=== PATIENT | female | born 1955 | race Caucasian/White ===

== ENCOUNTER → 2017-01-11 | Outpatient (CLI) | payer BC ==
--- NOTE | 2017-01-11 11:01 | PCM.PRNOTE ---
- Free Text/Narrative Note: Procedure: Cardiolite exercise stress test Resting blood pressure 150/90, pulse 83 Patient exercised per Luis protocol 5 minutes 51 seconds and achieved a maximum heart rate of 140 beats per minute which was 88% of age-predicted maximum heart rate. Mets: 7.0 double product 51521 Resting EKG revealed normal sinus rhythm With exertion, no acute ST-T changes were noted Test stopped at target heart rate. No complaints of chest pain during exercise or recovery. Impression: #1. Negative stress test for acute ST-T changes #2. Hypertensive response to exercise #3 Poor exercise tolerance #4. Cardiolite portion of test pending
--- NOTE | 2017-01-11 13:14 | NM ---
EXAMINATION: Nuclear medicine myocardial perfusion study with exercise stress test. HISTORY: Chest pain. PROCEDURE: Patient exercised according to Luis protocol for 5 minutes and 51 seconds and achieved maximal hear t rate of 140 beats per minute. Adequate exercise. Following intravenous administration of 9.9 and 30.7 mCi of technetium 99m sestamibi, stress and r est SPECT images including gating imaging was performed. FINDINGS: Stress and rest myocardial SPECT images demonstrates mildly decreased perfusion at the apex which ap pears slightly more pronounced during stress. Review of gated images demonstrates normal wall motion, contractility and wall thickening. The left ventricular ejection fraction is 73 %. The left ventricular chamber size is normal. IMPRESSION: 1. Possible minimal ischemia at the apex. 2. Normal ventricular chamber size and function with ejection fraction of 73 %.
== END ==
LOC: MW.NM 06:24
PROVIDERS: ATTEND Internal Medicine
DX: R07.9 Chest pain, unspecified (principal)
CPT/HCPCS: 78452; 93017; A9500

== ENCOUNTER → 2017-02-05 | Outpatient (CLI) | payer BC | LOC: MW.CHIM 11:32 | PROVIDERS: ATTEND Internal Medicine | DX: R07.9 Chest pain, unspecified (principal) | CPT/HCPCS: 93005 ==

== ENCOUNTER → 2017-02-11 | Outpatient (CLI) | payer BC ==
--- NOTE | 2017-02-13 17:50 | ECHO ---
EXAM DATE: 02/11/17 The echocardiogram report can be seen in this patient's EMR (Electronic Medical Record) in the Reports section. CORBY
== END ==
LOC: MW.US 12:33
PROVIDERS: ATTEND Internal Medicine
DX: I25.10 Atherosclerotic heart disease of native coronary artery without angina pectoris (principal)
CPT/HCPCS: 93306

== ENCOUNTER 2019-01-08 08:36 | Emergency (ER) | payer BC ==
[2019-01-08] MEDS ORDERED: Sodium Chloride 0.9% 1,000 ML IV ONE (08:41)
[2019-01-08] MEDS ORDERED: Ondansetron 4 MG/2 ML SDV IVPUSH ONE (08:41)
[2019-01-08] MEDS ORDERED: Aspirin 81 MG Tab.Chew PO ONE (08:41)
--- NOTE | 2019-01-08 08:43 | EDM.PDOC ---
ED HPI GENERAL MEDICAL PROBLEM - General Stated Complaint: DIZZINESS, CHEST PAIN Time Seen by Provider: 01/08/19 08:42 Source of Information: Reports: Patient - History of Present Illness INITIAL COMMENTS - FREE TEXT/NARRATIVE: HISTORY AND PHYSICAL: History of present illness: [Patient presents for a visit due to dizziness and chest pain She's had the chest pain intermittently for [address] Rosas, he is been to [place] for repeat stress testing she does have a history of OH in 2015 and stenting should has not used nitroglycerin, as pain is 5 out of 10 stabbing and short lived in nature worsened by movements, can reproduce the pain with palpation over the lower rib margins near the sternum Dizziness is clearly associated with head position more significant with looking up at the ceiling and head tilt to the right, this has also been occurring for months No fever nausea vomiting chills sweats no chest pain shortness breath headache dizziness or palpitation no bowel or urine symptoms at current Although during exam as per above I can reproduce the dizziness as long as she is looking straight ahead or sitting up without movement there is no dizziness] Review of systems: As per history of present illness and below otherwise all systems reviewed and negative. Past medical history: As per history of present illness and as reviewed below otherwise noncontributory. Surgical history: As per history of present illness and as reviewed below otherwise noncontributory. Social history: No reported history of drug or alcohol abuse. Family history: As per history of present illness and as reviewed below otherwise noncontributory. Physical exam: HEENT: Atraumatic, normocephalic, pupils reactive, negative for conjunctival pallor or scleral icterus, mucous membranes moist, throat clear, neck supple, nontender, trachea midline. Positional dizziness as outlined in the history of present illness Lungs: Clear to auscultation, breath sounds equal bilaterally, chest nontender. Heart: S1S2, regular, negative for clicks, rubs, or JVD. Abdomen: Soft, nondistended, nontender. Negative for masses or hepatosplenomegaly. Negative for costovertebral tenderness. Pelvis: Stable nontender. Genitourinary: Deferred. Rectal: Deferred. Extremities: Atraumatic, negative for cords or calf pain. Neurovascular unremarkable. Neuro: Awake, alert, oriented. Cranial nerves II through XII unremarkable. Cerebellum unremarkable. Motor and sensory unremarkable throughout. Exam nonfocal. Diagnostics: [CBC CMP UA troponin lipase EKG Chest 1 view] pt refused head CT as she is claustrophobic and generally has required conscious sedation to have had imaging performed Therapeutics: [Normal saline Aspirin 324 mg chewable Zofran Photon X Scopolamine patch Follow-up with primary care and cardiology as scheduled ] Impression: [Chest wall pain B9 positional vertigo Chronic history of baseline Definitive disposition and diagnosis as appropriate pending reevaluation and review of above. - Related Data Allergies Allergy/AdvReac Type Severity Reaction Status Date / Time erythromycin base Allergy Vomiting Verified 01/08/19 09:04 [Erythromycin Base] Sulfa (Sulfonamide Allergy Vomiting Verified 01/08/19 09:04 Antibiotics) Tetracyclines Allergy Vomiting Verified 01/08/19 09:04 Home Meds: Home Meds Aspirin [Ecotrin] 81 mg PO DAILY 12/16/14 [History] Clopidogrel [Plavix] 75 mg PO DAILY 12/16/14 [History] Losartan [Cozaar] 25 mg PO DAILY 12/16/14 [History] Metoprolol Succinate [Toprol XL] 25 mg PO DAILY 12/16/14 [History] Nitroglycerin [Nitrostat] 0.4 mg SL ASDIRECTED PRN 12/16/14 [History] Ranitidine [Zantac] 150 mg PO DAILY PRN 12/16/14 [History] atorvaSTATin [Lipitor] 40 mg PO DAILY 12/16/14 [History] Past Medical History HEENT History: Reports: None Cardiovascular History: Reports: High Cholesterol, Hypertension, [place], Stents Respiratory History: Reports: None Gastrointestinal History: Reports: GERD Genitourinary History: Reports: None 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 Musculoskeletal History: Reports: None Neurological History: Reports: None Psychiatric History: Reports: None Endocrine/Metabolic History: Reports: None Hematologic History: Reports: None Immunologic History: Reports: None Oncologic (Cancer) History: Reports: None Dermatologic History: Reports: None - Infectious Disease History Infectious Disease History: Reports: Chicken Pox - Past Surgical History Cardiovascular Surgical History: Reports: Coronary Artery Stent ED ROS GENERAL - Review of Systems Review Of Systems: See Below ED EXAM, GENERAL - Physical Exam Exam: See Below Course - Vital Signs Last Recorded V/S: Last Vital Signs Temp 97.1 F 01/08/19 08:41 Pulse 77 01/08/19 08:41 Resp 16 01/08/19 08:41 BP 182/82 H 01/08/19 08:41 Pulse Ox 97 01/08/19 08:41 - Orders/Labs/Meds Orders: Active Orders 24 hr Category Date Time Status EKG Documentation Completion [RC] STAT Care 01/08/19 08:42 Active Labs: Laboratory Tests 01/08/19 01/08/19 01/08/19 Range/Units 08:50 08:50 08:50 WBC 9.37 (4.0-11.0) K/uL RBC 4.51 (4.30-5.90) M/uL Hgb 14.1 (12.0-16.0) g/dL Hct 42.0 (36.0-46.0) % MCV 93.1 (80.0-98.0) fL MCH 31.3 (27.0-32.0) pg MCHC 33.6 (31.0-37.0) g/dL RDW Std Deviation 44.1 (28.0-62.0) fl RDW Coeff of Ashly 13 (11.0-15.0) % Plt Count 250 (150-400) K/uL MPV 9.70 (7.40-12.00) fL Neut % (Auto) 64.2 (48.0-80.0) % Lymph % (Auto) 24.3 (16.0-40.0) % [place] % (Auto) 8.2 (0.0-15.0) % Eos % (Auto) 2.9 (0.0-7.0) % Baso % (Auto) 0.4 (0.0-1.5) % Neut # (Auto) 6.0 H (1.4-5.7) K/uL Lymph # (Auto) 2.3 (0.6-2.4) K/uL [place] # (Auto) 0.8 (0.0-0.8) K/uL Eos # (Auto) 0.3 (0.0-0.7) K/uL Baso # (Auto) 0.0 (0.0-0.1) K/uL Nucleated RBC % 0.0 /100WBC Nucleated RBCs # 0 K/uL INR 0.97 Sodium 142 (136-145) mmol/L Potassium 4.1 (3.5-5.1) mmol/L Chloride 104 (98-107) mmol/L Carbon Dioxide 29.3 (21.0-32.0) mmol/L BUN 12 (7.0-18.0) mg/dL Creatinine 0.7 (0.6-1.0) mg/dL Est Cr Clr Drug Dosing 65.06 mL/min Estimated GFR (MDRD) > 60.0 ml/min Glucose 130 H (74-106) mg/dL Calcium 9.8 (8.5-10.1) mg/dL Total Bilirubin 0.7 (0.2-1.0) mg/dL AST 27 (15-37) IU/L ALT 54 (14-63) IU/L Alkaline Phosphatase 94 (46-116) U/L Troponin I < 0.050 (0.000-0.056) ng/mL Total Protein 7.6 (6.4-8.2) g/dL Albumin 4.1 (3.4-5.0) g/dL Globulin 3.5 (2.6-4.0) g/dL Albumin/Globulin Ratio 1.2 (0.9-1.6) Lipase 93 (73-393) U/L Urine Color Urine Appearance Urine pH (5.0-8.0) Ur Specific [place] (1.001-1.035) Urine Protein (NEGATIVE) mg/dL Urine Glucose (UA) (NEGATIVE) mg/dL Urine Ketones (NEGATIVE) mg/dL Urine Occult Blood (NEGATIVE) Urine Nitrite (NEGATIVE) Urine Bilirubin (NEGATIVE) Urine Urobilinogen (<2.0) EU/dL Ur Leukocyte Esterase (NEGATIVE) 01/08/19 Range/Units 10:00 WBC (4.0-11.0) K/uL RBC (4.30-5.90) M/uL Hgb (12.0-16.0) g/dL Hct (36.0-46.0) % MCV (80.0-98.0) fL MCH (27.0-32.0) pg MCHC (31.0-37.0) g/dL RDW Std Deviation (28.0-62.0) fl RDW Coeff of Ashly (11.0-15.0) % Plt Count (150-400) K/uL MPV (7.40-12.00) fL Neut % (Auto) (48.0-80.0) % Lymph % (Auto) (16.0-40.0) % [place] % (Auto) (0.0-15.0) % Eos % (Auto) (0.0-7.0) % Baso % (Auto) (0.0-1.5) % Neut # (Auto) (1.4-5.7) K/uL Lymph # (Auto) (0.6-2.4) K/uL [place] # (Auto) (0.0-0.8) K/uL Eos # (Auto) (0.0-0.7) K/uL Baso # (Auto) (0.0-0.1) K/uL Nucleated RBC % /100WBC Nucleated RBCs # K/uL INR Sodium (136-145) mmol/L Potassium (3.5-5.1) mmol/L Chloride (98-107) mmol/L Carbon Dioxide (21.0-32.0) mmol/L BUN (7.0-18.0) mg/dL Creatinine (0.6-1.0) mg/dL Est Cr Clr Drug Dosing mL/min Estimated GFR (MDRD) ml/min Glucose (74-106) mg/dL Calcium (8.5-10.1) mg/dL Total Bilirubin (0.2-1.0) mg/dL AST (15-37) IU/L ALT (14-63) IU/L Alkaline Phosphatase (46-116) U/L Troponin I (0.000-0.056) ng/mL Total Protein (6.4-8.2) g/dL Albumin (3.4-5.0) g/dL Globulin (2.6-4.0) g/dL Albumin/Globulin Ratio (0.9-1.6) Lipase (73-393) U/L Urine Color YELLOW Urine Appearance CLEAR Urine pH 6.0 (5.0-8.0) Ur Specific [place] 1.010 (1.001-1.035) Urine Protein NEGATIVE (NEGATIVE) mg/dL Urine Glucose (UA) NEGATIVE (NEGATIVE) mg/dL Urine Ketones NEGATIVE (NEGATIVE) mg/dL Urine Occult Blood NEGATIVE (NEGATIVE) Urine Nitrite NEGATIVE (NEGATIVE) Urine Bilirubin NEGATIVE (NEGATIVE) Urine Urobilinogen 0.2 (<2.0) EU/dL Ur Leukocyte Esterase NEGATIVE (NEGATIVE) Meds: Medications Discontinued Medications Generic Name Dose Route Start Last Admin Trade Name Benjie PRN Reason Stop Dose Admin Aspirin 324 mg 01/08/19 08:41 01/08/19 09:15 Aspirin PO 01/08/19 08:42 324 mg ONETIME ONE Administration Sodium Chloride 1,000 mls @ 999 mls/hr 01/08/19 08:41 01/08/19 09:10 Normal Saline IV 01/08/19 09:41 999 mls/hr STAT ONE Administration Sterile Water Confirm 01/08/19 10:19 01/08/19 10:37 Sterile Water For Injection Administered 01/08/19 10:20 1 mls/hr Dose Administration 20 mls @ as directed .ROUTE .STK-MED ONE Ondansetron HCl 8 mg 01/08/19 08:41 01/08/19 09:13 Zofran IVPUSH 01/08/19 08:42 8 mg ONETIME ONE Administration Pantoprazole Sodium 80 mg 01/08/19 09:27 01/08/19 10:33 Protonix Iv IVPUSH 01/08/19 09:28 80 mg .BOLUS ONE Administration Departure - Departure Time of Disposition: 10:48 Disposition: Home, Self-Care 01 Condition: Good Clinical Impression: Benign positional vertigo, Chest wall pain - Discharge Information Additional Instructions: The following information is given to patients seen in the emergency department who are being discharged to home. This information is to outline your options for follow-up care. We provide all patients seen in our emergency department with a follow-up referral. The need for follow-up, as well as the timing and circumstances, are variable depending upon the specifics of your emergency department visit. If you don't have a primary care physician on staff, we will provide you with a referral. We always advise you to contact your personal physician following an emergency department visit to inform them of the circumstance of the visit and for follow-up with them and/or the need for any referrals to a consulting specialist. The emergency department will also refer you to a specialist when appropriate. This referral assures that you have the opportunity for follow-up care with a specialist. All of these measure are taken in an effort to provide you with optimal care, which includes your follow-up. Under all circumstances we always encourage you to contact your private physician who remains a resource for coordinating your care. When calling for follow-up care, please make the office aware that this follow-up is from your recent emergency room visit. If for any reason you are refused follow-up, please contact the [facility] emergency department at and asked to speak to the emergency department charge nurse. - My Orders Last 24 Hours: My Active Orders 01/08/19 08:42 EKG Documentation Completion [RC] STAT - Assessment/Plan Last 24 Hours: My Active Orders 01/08/19 08:42 EKG Documentation Completion [RC] STAT
[2019-01-08] MEDS ORDERED: Pantoprazole 40 MG Vial IVPUSH ONE (09:27)
[2019-01-08 09:36] LABS: CHLORIDE,CL 104 mmol/L (98-107); SODIUM,NA 142 mmol/L (136-145)
--- NOTE | 2019-01-08 09:40 | CR ---
EXAMINATION: Portable chest radiograph. HISTORY: Shortness of breath. FINDINGS: The trachea is midline. The cardiomediastinal silhouette is within normal limits. No pulmonary infiltrates, effusions or pneumothorax. Osseous structures appear unremarkable. IMPRESSION: No acute cardiopulmonary process.
[2019-01-08] MEDS ORDERED: Water For Injection, Sterile 20 ML ONE (10:19)
[2019-01-08 11:23] VITALS: BP 163/66
== END 2019-01-08 11:12 | disposition home or self-care (01) ==
LOC: MW.ED 08:36
DX: R07.89 Other chest pain (principal); H81.10 Benign paroxysmal vertigo, unspecified ear; I10 Essential (primary) hypertension; I25.2 Old myocardial infarction; Z88.1 Allergy status to other antibiotic agents; Z79.82 Long term (current) use of aspirin
CPT/HCPCS: 36415; 71045; 80053; 81003; 83690; 84484; 85025; 85610; 96361; 96374; 96375; 99285; A9270; C9113; J2405; J7040; 99284

== ENCOUNTER 2023-07-03 11:50 | Emergency (ER) | payer BC ==
[2023-07-03] MEDS ORDERED: Ondansetron 4 MG/2 ML SDV IVPUSH ONE (12:29)
[2023-07-03] MEDS ORDERED: Sodium Chloride 0.9% 10 ML Syringe FLUSH PRN (12:29)
[2023-07-03] MEDS ORDERED: Sodium Chloride 0.9% 1,000 ML IV ONE (12:29)
[2023-07-03] MEDS ORDERED: Sodium Chloride 0.9% 2.5 ML Syringe FLUSH PRN (12:29)
[2023-07-03 12:48] LABS: BASOPHILS ABSOLUTE AUTO 0.1 K/uL (0.0-0.1); BASOPHILS PERCENT AUTO 0.7 % (0.0-1.5); EOSINOPHILS ABSOLUTE AUTO 0.2 K/uL (0.0-0.7); EOSINOPHILS PERCENT AUTO 2.8 % (0.0-7.0); HEMATOCRIT 43.1 % (36.0-46.0); HEMOGLOBIN 14.6 g/dL (12.0-16.0); LYMPHOCYTES ABSOLUTE AUTO 1.4 K/uL (0.6-2.4); LYMPHOCYTES PERCENT AUTO 19.8 % (16.0-40.0); MEAN CORPUSCULAR HEMOGLOBIN 33.2 pg (27.0-32.0); MEAN CORPUSCULAR HGB CONC 33.9 g/dL (31.0-37.0); MONOCYTES ABSOLUTE AUTO 0.6 K/uL (0.0-0.8); MONOCYTES PERCENT AUTO 8.6 % (0.0-15.0); NEUTROPHILS ABSOLUTE AUTO 4.9 K/uL (1.4-5.7); NEUTROPHILS PERCENT AUTO 68.1 % (48.0-80.0); NRBC ABSOLUTE 0 K/uL; PLATELET COUNT,PLT 254 K/uL (150-400); WHITE BLOOD CELL COUNT,WBC 7.24 K/uL (4.0-11.0)
[2023-07-03 13:00] LABS: INR 0.98 (0.86-1.11)
[2023-07-03 13:28] LABS: A/G RATIO 1.4 (0.9-1.6); ALANINE AMINOTRANSFERASE,ALT 32 IU/L (14-63); ALBUMIN 4.2 g/dL (3.4-5.0); ALKALINE PHOSPHATASE 56 U/L (46-116); ASPARTATE AMNIOTRANSFERASE,AST 22 IU/L (15-37); BILIRUBIN TOTAL 0.5 mg/dL (0.2-1.0); BLOOD UREA NITROGEN,BUN 12 mg/dL (7.0-18.0); CALCIUM 9.8 mg/dL (8.5-10.1); CHLORIDE,CL 103 mmol/L (98-107); CREATININE 0.7 mg/dL (0.6-1.0); EST CRCL DRUG DOSING (CG) 61.68 mL/min; GLUCOSE RANDOM 141 mg/dL (74-106); POTASSIUM,K 4.7 mmol/L (3.5-5.1); PROTEIN TOTAL,TP 7.3 g/dL (6.4-8.2); SODIUM,NA 140 mmol/L (136-145)
[2023-07-03 13:32] LABS: ESTIMATED GFR 95 mL/min (>60)
[2023-07-03] MEDS ORDERED: Meclizine 25 MG Tab PO ONE (14:03)
[2023-07-03 15:14] VITALS: BP 189/90; PULSE 69
== END 2023-07-03 15:24 | disposition home or self-care (01) ==
LOC: MW.ED 11:50
DX: R42 Dizziness and giddiness (principal); I10 Essential (primary) hypertension; E78.00 Pure hypercholesterolemia, unspecified; I25.2 Old myocardial infarction; K21.9 Gastro-esophageal reflux disease without esophagitis; Z72.0 Tobacco use; Z88.1 Allergy status to other antibiotic agents; Z88.2 Allergy status to sulfonamides; Z88.8 Allergy status to other drugs, medicaments and biological substances; Z79.82 Long term (current) use of aspirin; Z79.02 Long term (current) use of antithrombotics/antiplatelets; Z79.899 Other long term (current) drug therapy
CPT/HCPCS: 36415; 70450; 80053; 84484; 85025; 85610; 93005; 96361; 96374; 96375; 99284; A9270; J2405; J3360; J3490; J7030; 93010

== ENCOUNTER 2024-10-31 15:24 | Emergency (ER) | payer MEDICARE ==
[2024-10-31 17:49] LABS: BASOPHILS ABSOLUTE AUTO 0.09 K/uL (0.00-0.20); BASOPHILS PERCENT AUTO 0.6 % (0.0-1.0); EOSINOPHILS ABSOLUTE AUTO 1.09 K/uL (0.00-0.45); EOSINOPHILS PERCENT AUTO 7.1 % (0.0-6.0); HEMATOCRIT 30.1 % (37.0-47.0); HEMOGLOBIN 9.6 g/dL (12.0-16.0); IMMATURE GRAN ABSOLUTE AUTO 0.13 K/uL (0.00-0.05); IMMATURE GRAN PERCENT AUTO 0.9 % (0.0-0.4); LYMPHOCYTES ABSOLUTE AUTO 1.62 K/uL (1.00-4.80); LYMPHOCYTES PERCENT AUTO 10.6 % (24.0-44.0); MEAN CORPUSCULAR HEMOGLOBIN 28.7 pg (28.0-32.0); MEAN CORPUSCULAR HGB CONC 31.9 g/dL (32.0-36.0); MEAN CORPUSCULAR VOLUME 89.9 fL (83.0-99.0); MEAN PLATELET VOLUME 8.8 fL (9.4-12.3); MONOCYTES ABSOLUTE AUTO 1.15 K/uL (0.00-0.80); MONOCYTES PERCENT AUTO 7.5 % (0.0-8.0); NEUTROPHILS ABSOLUTE AUTO 11.21 K/uL (1.80-7.70); NEUTROPHILS PERCENT AUTO 73.3 % (41.0-71.0); PLATELET COUNT,PLT 722 K/uL (150-400); RED BLOOD CELL COUNT 3.35 M/uL (4.10-5.30); WHITE BLOOD CELL COUNT,WBC 15.29 K/uL (3.9-11.3)
[2024-10-31] MEDS: Albuterol/Ipratropium 3.0-0.5 MG/3 ML Neb Soln NEB ONE (17:53)
[2024-10-31 18:19] LABS: A/G RATIO 0.5 (0.9-1.6); ALBUMIN 2.8 g/dL (3.4-5.0); BILIRUBIN TOTAL 0.3 mg/dL (0.2-1.0); CALCIUM 9.6 mg/dL (8.5-10.1); CREATININE 0.7 mg/dL (0.6-1.0); EST CRCL DRUG DOSING (CG) 59.99 mL/min; POTASSIUM,K 4.1 mmol/L (3.5-5.1)
[2024-10-31] MEDS: cefTRIAXone 1 GM in Sodium Chloride 0.9% 50 ML IV ONE (19:49)
[2024-10-31] MEDS: Iopamidol 755 MG/ML 500 ML Multipack Bottle IVPUSH ONE (19:56)
[2024-10-31 21:24] VITALS: BP 141/73; PULSE 94
== END 2024-10-31 21:24 | disposition home or self-care (01) ==
LOC: MW.ED 15:24
DX: J90 Pleural effusion, not elsewhere classified (principal); R91.8 Other nonspecific abnormal finding of lung field; I10 Essential (primary) hypertension; I25.2 Old myocardial infarction; K21.9 Gastro-esophageal reflux disease without esophagitis; E78.00 Pure hypercholesterolemia, unspecified; Z75.8 Other problems related to medical facilities and other health care; Z88.1 Allergy status to other antibiotic agents; Z88.2 Allergy status to sulfonamides; Z88.8 Allergy status to other drugs, medicaments and biological substances; Z79.82 Long term (current) use of aspirin; Z79.899 Other long term (current) drug therapy
CPT/HCPCS: 36415; 71275; 80053; 83605; 83880; 84484; 85025; 87040; 93005; 96365; 99285; J0696; J3490; Q9967; 93010; 99284; J7620-GY

== ENCOUNTER 2024-11-02 12:49 | Emergency (ER) | payer MEDICARE ==
[2024-11-02 15:47] VITALS: BP 111/76; PULSE 78
== END 2024-11-02 15:45 | disposition home or self-care (01) ==
LOC: MW.ED 12:49
DX: J90 Pleural effusion, not elsewhere classified (principal); I10 Essential (primary) hypertension; I25.2 Old myocardial infarction; K21.9 Gastro-esophageal reflux disease without esophagitis; E78.00 Pure hypercholesterolemia, unspecified; Z88.2 Allergy status to sulfonamides; Z88.8 Allergy status to other drugs, medicaments and biological substances; Z79.82 Long term (current) use of aspirin; Z79.899 Other long term (current) drug therapy
CPT/HCPCS: 99283; 99284

== ENCOUNTER 2024-12-27 14:33 | Emergency (ER) | payer MEDICARE ==
[2024-12-27] MEDS ORDERED: Sodium Chloride 0.9% 2.5 ML Syringe FLUSH PRN (14:37)
[2024-12-27] MEDS ORDERED: Sodium Chloride 0.9% 10 ML Syringe FLUSH PRN (14:37)
[2024-12-27 14:54] LABS: HEMATOCRIT 30.6 % (37.0-47.0); HEMOGLOBIN 9.6 g/dL (12.0-16.0); MEAN CORPUSCULAR HEMOGLOBIN 26.8 pg (28.0-32.0); MEAN CORPUSCULAR HGB CONC 31.4 g/dL (32.0-36.0); MEAN CORPUSCULAR VOLUME 85.5 fL (83.0-99.0); MEAN PLATELET VOLUME 9.1 fL (9.4-12.3); PLATELET COUNT,PLT 469 K/uL (150-400); RED BLOOD CELL COUNT 3.58 M/uL (4.10-5.30); WHITE BLOOD CELL COUNT,WBC 19.27 K/uL (3.9-11.3)
[2024-12-27 15:09] LABS: INR 1.26 (0.86-1.11)
[2024-12-27 15:12] LABS: EOSINOPHILS ABSOLUTE MAN 1.93 K/uL (0.00-0.45); EOSINOPHILS PERCENT MAN 10 % (0-6); LYMPHOCYTES ABSOLUTE MAN 1.54 K/uL (1.00-4.80); LYMPHOCYTES PERCENT MAN 8 % (24-44); SEG NEUTROPHILS PERCENT MAN 82 % (41-71)
[2024-12-27] MEDS: Sodium Chloride 0.9% 500 ML IV SCH (15:12)
[2024-12-27 15:30] LABS: A/G RATIO 0.7 (0.9-1.6); ALBUMIN 2.5 g/dL (3.4-5.0); BILIRUBIN TOTAL 0.6 mg/dL (0.2-1.0); CALCIUM 8.5 mg/dL (8.5-10.1); CARBON DIOXIDE,CO2 25.8 mmol/L (21.0-32.0); CREATININE 0.7 mg/dL (0.6-1.0); EST CRCL DRUG DOSING (CG) 62.74 mL/min; MAGNESIUM 1.3 mg/dL (1.8-2.4); POTASSIUM,K 4.5 mmol/L (3.5-5.1)
[2024-12-27 15:48] LABS: LACTIC ACID 2.6 mmol/L (0.4-2.0)
[2024-12-27] MEDS: Iopamidol 755 MG/ML 500 ML Multipack Bottle IVPUSH STA (16:19)
[2024-12-27] MEDS: Lidocaine 1% 50 ML MDV INJECT ONE (17:47)
[2024-12-27] MEDS: fentaNYL 50 MCG/ML SDV IVPUSH ONE (18:10)
[2024-12-27 19:40] VITALS: BP 110/59; PULSE 85
== END 2024-12-27 19:40 | disposition home or self-care (01) ==
LOC: MW.ED 14:33
DX: C78.00 Secondary malignant neoplasm of unspecified lung (principal); J91.0 Malignant pleural effusion; I25.10 Atherosclerotic heart disease of native coronary artery without angina pectoris; I25.2 Old myocardial infarction; I10 Essential (primary) hypertension; E78.00 Pure hypercholesterolemia, unspecified; K21.9 Gastro-esophageal reflux disease without esophagitis; Z88.1 Allergy status to other antibiotic agents; Z88.2 Allergy status to sulfonamides; Z88.8 Allergy status to other drugs, medicaments and biological substances; Z79.82 Long term (current) use of aspirin; Z79.51 Long term (current) use of inhaled steroids; Z79.899 Other long term (current) drug therapy
CPT/HCPCS: 32555; 36415; 71045; 71275; 74177; 80053; 83605; 83735; 83880; 84484; 85025; 85610; 93005; 96361; 96374; 99285; J2003; J3010; J7040; Q9967

== ENCOUNTER 2025-02-13 18:57 | Emergency (ER) | payer MEDICARE ==
[2025-02-13 19:43] LABS: BASOPHILS ABSOLUTE AUTO 0.02 K/uL (0.00-0.20); BASOPHILS PERCENT AUTO 0.3 % (0.0-1.0); EOSINOPHILS ABSOLUTE AUTO 0.12 K/uL (0.00-0.45); EOSINOPHILS PERCENT AUTO 1.9 % (0.0-6.0); HEMATOCRIT 24.7 % (37.0-47.0); IMMATURE GRAN ABSOLUTE AUTO 0.05 K/uL (0.00-0.05); IMMATURE GRAN PERCENT AUTO 0.8 % (0.0-0.4); LYMPHOCYTES ABSOLUTE AUTO 1.33 K/uL (1.00-4.80); LYMPHOCYTES PERCENT AUTO 21.1 % (24.0-44.0); MEAN CORPUSCULAR HEMOGLOBIN 29.1 pg (28.0-32.0); MEAN CORPUSCULAR HGB CONC 32.4 g/dL (32.0-36.0); MEAN CORPUSCULAR VOLUME 89.8 fL (83.0-99.0); MEAN PLATELET VOLUME 8.5 fL (9.4-12.3); MONOCYTES ABSOLUTE AUTO 0.91 K/uL (0.00-0.80); MONOCYTES PERCENT AUTO 14.5 % (0.0-8.0); NEUTROPHILS ABSOLUTE AUTO 3.86 K/uL (1.80-7.70); NEUTROPHILS PERCENT AUTO 61.4 % (41.0-71.0); PLATELET COUNT,PLT 297 K/uL (150-400); RED BLOOD CELL COUNT 2.75 M/uL (4.10-5.30); WHITE BLOOD CELL COUNT,WBC 6.29 K/uL (3.9-11.3)
[2025-02-13 19:48] LABS: APPEARANCE,URINE CLEAR; BILIRUBIN,URINE NEGATIVE (NEGATIVE); COLOR,URINE YELLOW; GLUCOSE,URINE NEGATIVE (NEGATIVE); KETONES,URINE NEGATIVE (NEGATIVE); LEUKOCYTE ESTERASE,URINE NEGATIVE (NEGATIVE); NITRITE,URINE NEGATIVE (NEGATIVE); OCCULT BLOOD,URINE SMALL (NEGATIVE); PROTEIN,URINE NEGATIVE (NEGATIVE); UROBILINOGEN,URINE 0.2 EU/dL (<2.0)
[2025-02-13] MEDS: Ondansetron 4 MG/2 ML SDV IVPUSH ONE (19:48)
[2025-02-13] MEDS: HYDROmorphone 0.5 MG/0.5 ML Syringe IVPUSH ONE (19:48)
[2025-02-13] MEDS: Iopamidol 755 MG/ML 500 ML Multipack Bottle IVPUSH ONE (20:05)
[2025-02-13 20:12] LABS: A/G RATIO 0.9 (0.9-1.6); ALBUMIN 2.9 g/dL (3.4-5.0); BILIRUBIN TOTAL 0.2 mg/dL (0.2-1.0); CALCIUM 7.8 mg/dL (8.5-10.1); CARBON DIOXIDE,CO2 29.2 mmol/L (21.0-32.0); CREATININE 0.6 mg/dL (0.6-1.0); EST CRCL DRUG DOSING (CG) 69.99 mL/min; POTASSIUM,K 3.7 mmol/L (3.5-5.1)
[2025-02-13 20:47] LABS: BACTERIA,URINE RARE (NEGATIVE); EPITHELIAL CELLS,URINE RARE (NONE-FEW); WBC,URINE 0-1 (0-5/HPF)
[2025-02-13] MEDS: Methocarbamol 750 MG Tab PO STA (22:01)
[2025-02-13] MEDS: Ketorolac 30 MG/ML SDV IVPUSH ONE (22:14)
[2025-02-13 23:00] VITALS: BP 117/71; PULSE 100
== END 2025-02-13 23:01 | disposition home or self-care (01) ==
LOC: MW.ED 18:57
DX: R10.9 Unspecified abdominal pain (principal); C78.00 Secondary malignant neoplasm of unspecified lung; C80.1 Malignant (primary) neoplasm, unspecified; I10 Essential (primary) hypertension; I25.10 Atherosclerotic heart disease of native coronary artery without angina pectoris; E78.00 Pure hypercholesterolemia, unspecified; I25.2 Old myocardial infarction; K21.9 Gastro-esophageal reflux disease without esophagitis; Z95.5 Presence of coronary angioplasty implant and graft; Z79.82 Long term (current) use of aspirin; Z79.899 Other long term (current) drug therapy; Z88.2 Allergy status to sulfonamides; Z88.1 Allergy status to other antibiotic agents
CPT/HCPCS: 36415; 71275; 74177; 80053; 81001; 83690; 84484; 85025; 93005; 96374; 96375; 99285; A9270; J1885; J2405; Q9967; 93010; 99284

== ENCOUNTER 2025-02-22 17:29 | Inpatient (IN) | payer MEDICARE ==
[2025-02-22] MEDS ORDERED: Sodium Chloride 0.9% 10 ML Syringe FLUSH PRN (17:56)
[2025-02-22] MEDS ORDERED: Sodium Chloride 0.9% 2.5 ML Syringe FLUSH PRN (17:56)
[2025-02-22 18:05] LABS: BASOPHILS ABSOLUTE AUTO 0.04 K/uL (0.00-0.20); BASOPHILS PERCENT AUTO 0.3 % (0.0-1.0); EOSINOPHILS ABSOLUTE AUTO 0.18 K/uL (0.00-0.45); EOSINOPHILS PERCENT AUTO 1.5 % (0.0-6.0); HEMATOCRIT 29.9 % (37.0-47.0); HEMOGLOBIN 9.5 g/dL (12.0-16.0); IMMATURE GRAN ABSOLUTE AUTO 0.11 K/uL (0.00-0.05); IMMATURE GRAN PERCENT AUTO 0.9 % (0.0-0.4); LYMPHOCYTES ABSOLUTE AUTO 0.93 K/uL (1.00-4.80); LYMPHOCYTES PERCENT AUTO 7.7 % (24.0-44.0); MEAN CORPUSCULAR HEMOGLOBIN 28.6 pg (28.0-32.0); MEAN CORPUSCULAR HGB CONC 31.8 g/dL (32.0-36.0); MEAN CORPUSCULAR VOLUME 90.1 fL (83.0-99.0); MEAN PLATELET VOLUME 8.6 fL (9.4-12.3); MONOCYTES ABSOLUTE AUTO 1.09 K/uL (0.00-0.80); NEUTROPHILS ABSOLUTE AUTO 9.74 K/uL (1.80-7.70); NEUTROPHILS PERCENT AUTO 80.6 % (41.0-71.0); PLATELET COUNT,PLT 559 K/uL (150-400); RED BLOOD CELL COUNT 3.32 M/uL (4.10-5.30); WHITE BLOOD CELL COUNT,WBC 12.09 K/uL (3.9-11.3)
[2025-02-22 18:30] LABS: A/G RATIO 0.5 (0.9-1.6); ALANINE AMINOTRANSFERASE,ALT 14 IU/L (14-63); ALBUMIN 2.3 g/dL (3.4-5.0); ALKALINE PHOSPHATASE 84 U/L (46-116); ASPARTATE AMNIOTRANSFERASE,AST 15 IU/L (15-37); BILIRUBIN TOTAL 0.5 mg/dL (0.2-1.0); BLOOD UREA NITROGEN,BUN 6 mg/dL (7.0-18.0); CALCIUM 9.2 mg/dL (8.5-10.1); CARBON DIOXIDE,CO2 28.1 mmol/L (21.0-32.0); CHLORIDE,CL 91 mmol/L (98-107); CREATININE 0.6 mg/dL (0.6-1.0); GLUCOSE RANDOM 132 mg/dL (74-106); LIPASE 12 U/L (16-77); POTASSIUM,K 3.7 mmol/L (3.5-5.1); SODIUM,NA 129 mmol/L (136-145)
[2025-02-22 18:34] LABS: ESTIMATED GFR 97 mL/min (>60)
[2025-02-22] MEDS: Morphine 4 MG/ML Syringe IVPUSH ONE (20:34)
[2025-02-22 22:05] LABS: BODY FLUID TYPE PL
[2025-02-22 22:29] LABS: PROTEIN,BODY FLUID 3.6 g/dL
[2025-02-22 22:31] LABS: GLUCOSE,BODY FLUID < 1 mg/dL
[2025-02-22] MEDS: Sodium Chloride 0.9% 500 ML IV SCH (22:31)
[2025-02-22] MEDS: Cefepime 1 GM in Sodium Chloride 0.9% 50 ML IV ONE (22:31)
[2025-02-22] MEDS: Ondansetron 4 MG/2 ML SDV IVPUSH ONE (22:32)
[2025-02-22] MEDS: Morphine 2 MG/ML SYRINGE IVPUSH ONE (22:32)
[2025-02-22 22:58] LABS: COLOR,BODY FLUID RED
[2025-02-22 22:59] LABS: APPEARANCE,BODY FLUID CLOUDY; WBC BODY FLUID 25316 /uL
[2025-02-22 23:00] LABS: MONONUCLEAR, BODY FLUID 5.7 %; POLYMORPHONUCLEAR, BODY FLUID 94.3 %; RBC,BODY FLUID 48000 /uL
[2025-02-23] MEDS: Azithromycin 500 MG in Sodium Chloride 0.9% 250 ML IV SCH (00:42)
[2025-02-23] MEDS: Levofloxacin/Dextrose 5%-Water 750 MG in Premix Bag 1 BAG IV SCH (00:52)
[2025-02-23 05:51] LABS: BASOPHILS ABSOLUTE AUTO 0.04 K/uL (0.00-0.20); BASOPHILS PERCENT AUTO 0.4 % (0.0-1.0); EOSINOPHILS ABSOLUTE AUTO 0.34 K/uL (0.00-0.45); EOSINOPHILS PERCENT AUTO 3.5 % (0.0-6.0); HEMATOCRIT 26.1 % (37.0-47.0); HEMOGLOBIN 8.4 g/dL (12.0-16.0); IMMATURE GRAN ABSOLUTE AUTO 0.15 K/uL (0.00-0.05); IMMATURE GRAN PERCENT AUTO 1.5 % (0.0-0.4); LYMPHOCYTES ABSOLUTE AUTO 1.25 K/uL (1.00-4.80); LYMPHOCYTES PERCENT AUTO 12.7 % (24.0-44.0); MEAN CORPUSCULAR HGB CONC 32.2 g/dL (32.0-36.0); MEAN PLATELET VOLUME 8.4 fL (9.4-12.3); MONOCYTES ABSOLUTE AUTO 0.94 K/uL (0.00-0.80); MONOCYTES PERCENT AUTO 9.6 % (0.0-8.0); NEUTROPHILS ABSOLUTE AUTO 7.09 K/uL (1.80-7.70); NEUTROPHILS PERCENT AUTO 72.3 % (41.0-71.0); PLATELET COUNT,PLT 480 K/uL (150-400); WHITE BLOOD CELL COUNT,WBC 9.81 K/uL (3.9-11.3)
[2025-02-23 06:14] LABS: A/G RATIO 0.4 (0.9-1.6); ALBUMIN 1.8 g/dL (3.4-5.0); BILIRUBIN TOTAL 0.4 mg/dL (0.2-1.0); CALCIUM 8.3 mg/dL (8.5-10.1); CARBON DIOXIDE,CO2 28.4 mmol/L (21.0-32.0); CREATININE 0.5 mg/dL (0.6-1.0); EST CRCL DRUG DOSING (CG) 83.99 mL/min; POTASSIUM,K 3.3 mmol/L (3.5-5.1)
[2025-02-23] MEDS: Morphine 2 MG/ML SYRINGE IVPUSH PRN (08:41)
[2025-02-23] MEDS ORDERED: LORazepam 0.5 MG Tab PO PRN (09:00)
[2025-02-23] MEDS ORDERED: Methocarbamol 500 MG Tablet PO PRN (09:00)
[2025-02-23] MEDS ORDERED: cefTRIAXone 2 GM in Water For Injection, Sterile 20 ML IVPUSH SCH (09:00)
[2025-02-23] MEDS ORDERED: Magnesium Sulfate/Water 2 GM/50 ML Premix Bag IV ONE (10:28)
[2025-02-23] MEDS: Losartan 50 MG Tab PO SCH (10:28)
[2025-02-23] MEDS: Metoprolol Succinate 25 MG Tab.ER PO SCH (10:29)
[2025-02-23] MEDS: Cholecalciferol (Vitamin D3) 25 MCG Tab PO SCH (10:30)
[2025-02-23] MEDS: Apixaban 5 MG Tab PO SCH (10:30)
[2025-02-23] MEDS: Sertraline 100 MG Tab PO SCH (10:30)
[2025-02-23] MEDS: atorvaSTATin 40 MG Tab PO SCH (10:31)
[2025-02-23] MEDS: Fenofibrate,Micronized 67 MG Cap PO SCH (10:31)
[2025-02-23] MEDS: metroNIDAZOLE/Normal Saline 500 MG in Premix Bag 1 BAG IV SCH (10:42)
[2025-02-23] MEDS: Potassium Chloride 20 MEQ Tab.ER PO ONE (10:55)
[2025-02-23] MEDS: Magnesium Sulfate 2 GM/50 mL 2 GM in Premix Bag 1 BAG IV ONE (10:58)
[2025-02-23] MEDS: Tiotropium BR/Olodaterol HCL 4 GM Inhalation Spray 2.5mcg/1 dose; 10 doses INH SCH (11:10)
[2025-02-23] MEDS: oxyCODONE 5 MG Tab PO PRN (11:27)
[2025-02-23] MEDS: Ondansetron 4 MG/2 ML SDV IVPUSH PRN (17:56)
[2025-02-23 21:51] LABS: APPEARANCE,URINE CLEAR; BILIRUBIN,URINE NEGATIVE (NEGATIVE); COLOR,URINE YELLOW; GLUCOSE,URINE NEGATIVE (NEGATIVE); KETONES,URINE NEGATIVE (NEGATIVE); LEUKOCYTE ESTERASE,URINE NEGATIVE (NEGATIVE); NITRITE,URINE NEGATIVE (NEGATIVE); OCCULT BLOOD,URINE NEGATIVE (NEGATIVE); PH,URINE 5.5 (5.0-8.0); PROTEIN,URINE NEGATIVE (NEGATIVE); UROBILINOGEN,URINE 0.2 EU/dL (<2.0)
[2025-02-24 05:27] LABS: BASOPHILS ABSOLUTE AUTO 0.05 K/uL (0.00-0.20); BASOPHILS PERCENT AUTO 0.4 % (0.0-1.0); EOSINOPHILS PERCENT AUTO 3.1 % (0.0-6.0); HEMATOCRIT 25.5 % (37.0-47.0); HEMOGLOBIN 8.3 g/dL (12.0-16.0); IMMATURE GRAN ABSOLUTE AUTO 0.23 K/uL (0.00-0.05); IMMATURE GRAN PERCENT AUTO 1.8 % (0.0-0.4); LYMPHOCYTES ABSOLUTE AUTO 0.94 K/uL (1.00-4.80); LYMPHOCYTES PERCENT AUTO 7.2 % (24.0-44.0); MEAN CORPUSCULAR HEMOGLOBIN 29.2 pg (28.0-32.0); MEAN CORPUSCULAR HGB CONC 32.5 g/dL (32.0-36.0); MEAN CORPUSCULAR VOLUME 89.8 fL (83.0-99.0); MEAN PLATELET VOLUME 8.4 fL (9.4-12.3); MONOCYTES ABSOLUTE AUTO 1.35 K/uL (0.00-0.80); MONOCYTES PERCENT AUTO 10.4 % (0.0-8.0); NEUTROPHILS ABSOLUTE AUTO 10.07 K/uL (1.80-7.70); NEUTROPHILS PERCENT AUTO 77.1 % (41.0-71.0); PLATELET COUNT,PLT 511 K/uL (150-400); RED BLOOD CELL COUNT 2.84 M/uL (4.10-5.30); WHITE BLOOD CELL COUNT,WBC 13.04 K/uL (3.9-11.3)
[2025-02-24 05:53] LABS: CALCIUM 7.9 mg/dL (8.5-10.1); CARBON DIOXIDE,CO2 27.1 mmol/L (21.0-32.0); CREATININE 0.6 mg/dL (0.6-1.0); EST CRCL DRUG DOSING (CG) 69.99 mL/min; POTASSIUM,K 4.1 mmol/L (3.5-5.1)
[2025-02-24] MEDS: Polyethylene Glycol 3350 Powder 17 GM Packet PO SCH (15:27)
[2025-02-24] MEDS: oxyCODONE 5 MG Tab PO PRN (19:21)
[2025-02-25 06:03] LABS: BASOPHILS ABSOLUTE AUTO 0.04 K/uL (0.00-0.20); BASOPHILS PERCENT AUTO 0.3 % (0.0-1.0); EOSINOPHILS ABSOLUTE AUTO 0.57 K/uL (0.00-0.45); HEMATOCRIT 25.2 % (37.0-47.0); HEMOGLOBIN 8.1 g/dL (12.0-16.0); IMMATURE GRAN ABSOLUTE AUTO 0.26 K/uL (0.00-0.05); IMMATURE GRAN PERCENT AUTO 1.8 % (0.0-0.4); LYMPHOCYTES ABSOLUTE AUTO 0.79 K/uL (1.00-4.80); LYMPHOCYTES PERCENT AUTO 5.6 % (24.0-44.0); MEAN CORPUSCULAR HEMOGLOBIN 28.9 pg (28.0-32.0); MEAN CORPUSCULAR HGB CONC 32.1 g/dL (32.0-36.0); MEAN PLATELET VOLUME 8.5 fL (9.4-12.3); MONOCYTES ABSOLUTE AUTO 1.43 K/uL (0.00-0.80); MONOCYTES PERCENT AUTO 10.1 % (0.0-8.0); NEUTROPHILS ABSOLUTE AUTO 11.13 K/uL (1.80-7.70); NEUTROPHILS PERCENT AUTO 78.2 % (41.0-71.0); PLATELET COUNT,PLT 523 K/uL (150-400); WHITE BLOOD CELL COUNT,WBC 14.22 K/uL (3.9-11.3)
[2025-02-25 06:41] LABS: A/G RATIO 0.4 (0.9-1.6); ALBUMIN 1.6 g/dL (3.4-5.0); BILIRUBIN TOTAL 0.4 mg/dL (0.2-1.0); CALCIUM 7.8 mg/dL (8.5-10.1); CARBON DIOXIDE,CO2 28.8 mmol/L (21.0-32.0); CREATININE 0.6 mg/dL (0.6-1.0); EST CRCL DRUG DOSING (CG) 69.99 mL/min; MAGNESIUM 1.6 mg/dL (1.8-2.4); POTASSIUM,K 3.9 mmol/L (3.5-5.1); PROTEIN TOTAL,TP 5.4 g/dL (6.4-8.2)
[2025-02-25] MEDS ORDERED: Magnesium Sulfate/Water 2 GM/50 ML Premix Bag IV ONE (07:37)
[2025-02-25] MEDS ORDERED: LORazepam 2 MG/ML SDV IVPUSH PRN (07:49)
[2025-02-25] MEDS: Magnesium Sulfate 2 GM/50 mL 2 GM in Premix Bag 1 BAG IV ONE (08:18)
[2025-02-25] MEDS: oxyCODONE 5 MG Tab PO PRN (08:23)
[2025-02-25] MEDS ORDERED: Thiamine 200 MG/2 ML MDV IVPUSH SCH (09:00)
[2025-02-25] MEDS ORDERED: Folic Acid 1 MG/0.2 ML UD Syringe IV SCH (09:00)
[2025-02-26 06:15] LABS: HEMATOCRIT 25.2 % (37.0-47.0); HEMOGLOBIN 8.1 g/dL (12.0-16.0); MEAN CORPUSCULAR HEMOGLOBIN 28.9 pg (28.0-32.0); MEAN CORPUSCULAR HGB CONC 32.1 g/dL (32.0-36.0); MEAN PLATELET VOLUME 8.3 fL (9.4-12.3); PLATELET COUNT,PLT 515 K/uL (150-400); WHITE BLOOD CELL COUNT,WBC 16.91 K/uL (3.9-11.3)
[2025-02-26 06:32] LABS: CALCIUM 7.5 mg/dL (8.5-10.1); CARBON DIOXIDE,CO2 26.9 mmol/L (21.0-32.0); CREATININE 0.5 mg/dL (0.6-1.0); EST CRCL DRUG DOSING (CG) 83.99 mL/min; MAGNESIUM 1.5 mg/dL (1.8-2.4); POTASSIUM,K 3.9 mmol/L (3.5-5.1)
[2025-02-26 06:36] LABS: BAND ABSOLUTE MAN 0.68; BAND PERCENT MAN 4 %; BASOPHILS ABSOLUTE MAN 0.17 K/uL (0.00-0.20); BASOPHILS PERCENT MAN 1 % (0-1); EOSINOPHILS ABSOLUTE MAN 0.34 K/uL (0.00-0.45); EOSINOPHILS PERCENT MAN 2 % (0-6); LYMPHOCYTES ABSOLUTE MAN 0.51 K/uL (1.00-4.80); LYMPHOCYTES PERCENT MAN 3 % (24-44); METAMYELOCYTE ABSOLUTE MAN 0.17; METAMYELOCYTE PERCENT MAN 1 %; MONOCYTES ABSOLUTE MAN 0.85 K/uL (0.00-0.80); MONOCYTES PERCENT MAN 5 % (0-8); SEG NEUTROPHILS PERCENT MAN 84 % (41-71)
[2025-02-26] MEDS ORDERED: Magnesium Sulfate/Water 2 GM/50 ML Premix Bag IV ONE (07:30)
[2025-02-26] MEDS: Magnesium Sulfate 2 GM/50 mL 2 GM in Premix Bag 1 BAG IV ONE (08:19)
[2025-02-26] MEDS: Loperamide 2 MG Cap PO PRN (14:37)
[2025-02-26] MEDS: Sodium Chloride 0.9% 1,000 ML IV SCH (14:39)
[2025-02-27 06:00] LABS: BASOPHILS ABSOLUTE AUTO 0.05 K/uL (0.00-0.20); BASOPHILS PERCENT AUTO 0.3 % (0.0-1.0); EOSINOPHILS PERCENT AUTO 4.9 % (0.0-6.0); HEMATOCRIT 26.1 % (37.0-47.0); HEMOGLOBIN 8.4 g/dL (12.0-16.0); IMMATURE GRAN ABSOLUTE AUTO 0.25 K/uL (0.00-0.05); IMMATURE GRAN PERCENT AUTO 1.4 % (0.0-0.4); LYMPHOCYTES ABSOLUTE AUTO 1.17 K/uL (1.00-4.80); LYMPHOCYTES PERCENT AUTO 6.4 % (24.0-44.0); MEAN CORPUSCULAR HEMOGLOBIN 28.8 pg (28.0-32.0); MEAN CORPUSCULAR HGB CONC 32.2 g/dL (32.0-36.0); MEAN CORPUSCULAR VOLUME 89.4 fL (83.0-99.0); MEAN PLATELET VOLUME 8.1 fL (9.4-12.3); MONOCYTES ABSOLUTE AUTO 1.43 K/uL (0.00-0.80); MONOCYTES PERCENT AUTO 7.8 % (0.0-8.0); NEUTROPHILS ABSOLUTE AUTO 14.44 K/uL (1.80-7.70); NEUTROPHILS PERCENT AUTO 79.2 % (41.0-71.0); PLATELET COUNT,PLT 530 K/uL (150-400); RED BLOOD CELL COUNT 2.92 M/uL (4.10-5.30); WHITE BLOOD CELL COUNT,WBC 18.24 K/uL (3.9-11.3)
[2025-02-27 06:20] LABS: CALCIUM 7.4 mg/dL (8.5-10.1); CARBON DIOXIDE,CO2 26.7 mmol/L (21.0-32.0); CREATININE 0.5 mg/dL (0.6-1.0); EST CRCL DRUG DOSING (CG) 83.99 mL/min; POTASSIUM,K 3.7 mmol/L (3.5-5.1)
[2025-02-27] MEDS ORDERED: Magnesium Sulfate/Water 2 GM/50 ML Premix Bag IV ONE (09:01)
[2025-02-27] MEDS ORDERED: Naloxone 0.4 MG/ML SDV IVPUSH PRN (09:07)
[2025-02-27] MEDS: Morphine 2 MG/ML SYRINGE IVPUSH PRN (09:26)
[2025-02-27] MEDS: Sodium Chloride 1 GM Tab PO SCH (09:27)
[2025-02-27] MEDS: Magnesium Sulfate 2 GM/50 mL 2 GM in Premix Bag 1 BAG IV ONE (09:34)
[2025-02-27] MEDS: Cyclobenzaprine 5 MG Tab PO PRN (14:25)
[2025-02-28] MEDS: Sodium Chloride 0.9% 1,000 ML IV SCH (02:24)
[2025-02-28 06:15] LABS: HEMATOCRIT 23.5 % (37.0-47.0); HEMOGLOBIN 7.5 g/dL (12.0-16.0); MEAN CORPUSCULAR HEMOGLOBIN 28.7 pg (28.0-32.0); MEAN CORPUSCULAR HGB CONC 31.9 g/dL (32.0-36.0); PLATELET COUNT,PLT 433 K/uL (150-400); RED BLOOD CELL COUNT 2.61 M/uL (4.10-5.30)
[2025-02-28 06:31] LABS: EOSINOPHILS ABSOLUTE MAN 0.42 K/uL (0.00-0.45); EOSINOPHILS PERCENT MAN 2 % (0-6); LYMPHOCYTES ABSOLUTE MAN 1.25 K/uL (1.00-4.80); LYMPHOCYTES PERCENT MAN 6 % (24-44); MONOCYTES ABSOLUTE MAN 1.04 K/uL (0.00-0.80); MONOCYTES PERCENT MAN 5 % (0-8); SEG NEUTROPHILS PERCENT MAN 87 % (41-71)
[2025-02-28 06:37] LABS: CALCIUM 7.1 mg/dL (8.5-10.1); CARBON DIOXIDE,CO2 25.7 mmol/L (21.0-32.0); CREATININE 0.8 mg/dL (0.6-1.0); EST CRCL DRUG DOSING (CG) 52.49 mL/min; MAGNESIUM 2.2 mg/dL (1.8-2.4); POTASSIUM,K 3.6 mmol/L (3.5-5.1)
[2025-02-28] MEDS: Albuterol 8 GM Inhaler INH PRN (07:51)
[2025-02-28] MEDS ORDERED: Polyethylene Glycol 3350 Powder 17 GM Packet PO PRN (10:17)
[2025-02-28] MEDS: Metoclopramide 10 MG/2 ML SDV IVPUSH PRN (20:57)
[2025-03-01 05:43] LABS: HEMATOCRIT 23.7 % (37.0-47.0); HEMOGLOBIN 7.9 g/dL (12.0-16.0); MEAN CORPUSCULAR HEMOGLOBIN 29.2 pg (28.0-32.0); MEAN CORPUSCULAR HGB CONC 33.3 g/dL (32.0-36.0); MEAN CORPUSCULAR VOLUME 87.5 fL (83.0-99.0); MEAN PLATELET VOLUME 7.9 fL (9.4-12.3); PLATELET COUNT,PLT 401 K/uL (150-400); RED BLOOD CELL COUNT 2.71 M/uL (4.10-5.30); WHITE BLOOD CELL COUNT,WBC 22.09 K/uL (3.9-11.3)
[2025-03-01 06:05] LABS: A/G RATIO 0.5 (0.9-1.6); ALBUMIN 1.6 g/dL (3.4-5.0); BILIRUBIN TOTAL 0.4 mg/dL (0.2-1.0); CALCIUM 6.8 mg/dL (8.5-10.1); CREATININE 0.5 mg/dL (0.6-1.0); EST CRCL DRUG DOSING (CG) 83.99 mL/min; PHOSPHORUS 1.4 mg/dL (2.6-4.7); POTASSIUM,K 3.3 mmol/L (3.5-5.1); PROTEIN TOTAL,TP 4.8 g/dL (6.4-8.2)
[2025-03-01 06:10] LABS: EOSINOPHILS ABSOLUTE MAN 0.44 K/uL (0.00-0.45); EOSINOPHILS PERCENT MAN 2 % (0-6); LYMPHOCYTES ABSOLUTE MAN 0.44 K/uL (1.00-4.80); LYMPHOCYTES PERCENT MAN 2 % (24-44); MONOCYTES ABSOLUTE MAN 1.55 K/uL (0.00-0.80); MONOCYTES PERCENT MAN 7 % (0-8); SEG NEUTROPHILS ABSOLUTE MAN 19.66 K/uL (1.80-7.70); SEG NEUTROPHILS PERCENT MAN 89 % (41-71)
[2025-03-01] MEDS: Potassium Chloride 20 MEQ Tab.ER PO ONE (08:50)
[2025-03-01] MEDS: Phosphorus #1 250 MG Tab PO SCH (11:42)
[2025-03-01] MEDS: traZODone 50 MG Tab PO PRN (23:03)
[2025-03-02 06:50] LABS: HEMATOCRIT 26.5 % (37.0-47.0); HEMOGLOBIN 8.6 g/dL (12.0-16.0); MEAN CORPUSCULAR HEMOGLOBIN 29.4 pg (28.0-32.0); MEAN CORPUSCULAR HGB CONC 32.5 g/dL (32.0-36.0); MEAN CORPUSCULAR VOLUME 90.4 fL (83.0-99.0); MEAN PLATELET VOLUME 8.1 fL (9.4-12.3); PLATELET COUNT,PLT 362 K/uL (150-400); RED BLOOD CELL COUNT 2.93 M/uL (4.10-5.30); WHITE BLOOD CELL COUNT,WBC 22.28 K/uL (3.9-11.3)
[2025-03-02 07:07] LABS: A/G RATIO 0.5 (0.9-1.6); ALBUMIN 1.5 g/dL (3.4-5.0); BILIRUBIN TOTAL 0.4 mg/dL (0.2-1.0); CALCIUM 6.8 mg/dL (8.5-10.1); CARBON DIOXIDE,CO2 27.2 mmol/L (21.0-32.0); CREATININE 0.4 mg/dL (0.6-1.0); EST CRCL DRUG DOSING (CG) 104.98 mL/min; PHOSPHORUS 1.8 mg/dL (2.6-4.7); POTASSIUM,K 3.6 mmol/L (3.5-5.1); PROTEIN TOTAL,TP 4.8 g/dL (6.4-8.2)
[2025-03-02 08:26] LABS: EOSINOPHILS ABSOLUTE MAN 0.89 K/uL (0.00-0.45); EOSINOPHILS PERCENT MAN 4 % (0-6); LYMPHOCYTES ABSOLUTE MAN 0.89 K/uL (1.00-4.80); LYMPHOCYTES PERCENT MAN 4 % (24-44); MONOCYTES ABSOLUTE MAN 0.89 K/uL (0.00-0.80); MONOCYTES PERCENT MAN 4 % (0-8); SEG NEUTROPHILS ABSOLUTE MAN 19.61 K/uL (1.80-7.70); SEG NEUTROPHILS PERCENT MAN 88 % (41-71)
[2025-03-02] MEDS ORDERED: LORazepam 2 MG/ML SDV IVPUSH PRN (10:14)
[2025-03-03] MEDS: Simethicone 80 MG Tab.Chew PO ONE (02:32)
[2025-03-03 06:11] LABS: BASOPHILS ABSOLUTE AUTO 0.04 K/uL (0.00-0.20); BASOPHILS PERCENT AUTO 0.2 % (0.0-1.0); EOSINOPHILS ABSOLUTE AUTO 0.64 K/uL (0.00-0.45); EOSINOPHILS PERCENT AUTO 2.6 % (0.0-6.0); HEMATOCRIT 27.7 % (37.0-47.0); HEMOGLOBIN 8.9 g/dL (12.0-16.0); IMMATURE GRAN PERCENT AUTO 1.6 % (0.0-0.4); LYMPHOCYTES ABSOLUTE AUTO 0.78 K/uL (1.00-4.80); LYMPHOCYTES PERCENT AUTO 3.2 % (24.0-44.0); MEAN CORPUSCULAR HGB CONC 32.1 g/dL (32.0-36.0); MEAN CORPUSCULAR VOLUME 90.2 fL (83.0-99.0); MEAN PLATELET VOLUME 7.8 fL (9.4-12.3); MONOCYTES ABSOLUTE AUTO 1.93 K/uL (0.00-0.80); MONOCYTES PERCENT AUTO 7.9 % (0.0-8.0); NEUTROPHILS ABSOLUTE AUTO 20.76 K/uL (1.80-7.70); NEUTROPHILS PERCENT AUTO 84.5 % (41.0-71.0); PLATELET COUNT,PLT 359 K/uL (150-400); RED BLOOD CELL COUNT 3.07 M/uL (4.10-5.30); WHITE BLOOD CELL COUNT,WBC 24.55 K/uL (3.9-11.3)
[2025-03-03 06:39] LABS: CALCIUM 6.6 mg/dL (8.5-10.1); CARBON DIOXIDE,CO2 25.7 mmol/L (21.0-32.0); CREATININE 0.5 mg/dL (0.6-1.0); EST CRCL DRUG DOSING (CG) 83.99 mL/min; MAGNESIUM 1.9 mg/dL (1.8-2.4); PHOSPHORUS 2.2 mg/dL (2.6-4.7)
[2025-03-03] MEDS: Iopamidol 755 MG/ML 500 ML Multipack Bottle IVPUSH STA (11:24)
[2025-03-03] MEDS: Simethicone 80 MG Tab.Chew PO PRN (17:38)
[2025-03-03] MEDS: Sodium Chloride 1 GM Tab PO SCH (21:43)
[2025-03-04 09:36] LABS: HEMATOCRIT 26.6 % (37.0-47.0); HEMOGLOBIN 8.8 g/dL (12.0-16.0); MEAN CORPUSCULAR HEMOGLOBIN 29.7 pg (28.0-32.0); MEAN CORPUSCULAR HGB CONC 33.1 g/dL (32.0-36.0); MEAN CORPUSCULAR VOLUME 89.9 fL (83.0-99.0); PLATELET COUNT,PLT 314 K/uL (150-400); RED BLOOD CELL COUNT 2.96 M/uL (4.10-5.30); WHITE BLOOD CELL COUNT,WBC 25.67 K/uL (3.9-11.3)
[2025-03-04 09:56] LABS: CALCIUM 6.2 mg/dL (8.5-10.1); CARBON DIOXIDE,CO2 24.8 mmol/L (21.0-32.0); CREATININE 0.7 mg/dL (0.6-1.0); EST CRCL DRUG DOSING (CG) 59.99 mL/min; MAGNESIUM 1.7 mg/dL (1.8-2.4); PHOSPHORUS 2.3 mg/dL (2.6-4.7); POTASSIUM,K 3.7 mmol/L (3.5-5.1)
[2025-03-04 10:40] LABS: BAND ABSOLUTE MAN 0.26; BAND PERCENT MAN 1 %; EOSINOPHILS ABSOLUTE MAN 0.77 K/uL (0.00-0.45); EOSINOPHILS PERCENT MAN 3 % (0-6); LYMPHOCYTES ABSOLUTE MAN 0.77 K/uL (1.00-4.80); LYMPHOCYTES PERCENT MAN 3 % (24-44); METAMYELOCYTE ABSOLUTE MAN 0.51; METAMYELOCYTE PERCENT MAN 2 %; MONOCYTES ABSOLUTE MAN 1.28 K/uL (0.00-0.80); MONOCYTES PERCENT MAN 5 % (0-8); SEG NEUTROPHILS ABSOLUTE MAN 22.08 K/uL (1.80-7.70); SEG NEUTROPHILS PERCENT MAN 86 % (41-71)
[2025-03-05] MEDS: LORazepam 2 MG/ML SDV IVPUSH PRN (00:52)
[2025-03-05] MEDS ORDERED: MORPHINE SULFATE IV SCH (10:15)
[2025-03-05] MEDS ORDERED: NACL IV SCH (10:15)
[2025-03-05] MEDS: Morphine 50 MG in Sodium Chloride 0.9% 45 ML IV SCH (11:20)
[2025-03-05] MEDS: Morphine 2 MG/ML SYRINGE IVPUSH PRN (20:41)
[2025-03-06] MEDS: Sodium Chloride 1 GM Tab PO SCH (11:54)
[2025-03-06 16:18] VITALS: PULSE 100
[2025-03-06 20:37] VITALS: BP 98/54
== END 2025-03-07 10:30 | disposition expired | DRG 391 ==
LOC: MW.ED 17:29 → MW.MS 23:07
PROVIDERS: ADMIT Internal Medicine; ATTEND Internal Medicine
DX: J18.9 Pneumonia, unspecified organism (principal); K29.70 Gastritis, unspecified, without bleeding; J86.9 Pyothorax without fistula; C34.91 Malignant neoplasm of unspecified part of right bronchus or lung; C78.6 Secondary malignant neoplasm of retroperitoneum and peritoneum; E87.1 Hypo-osmolality and hyponatremia; J91.0 Malignant pleural effusion; Z66 Do not resuscitate; Z88.8 Allergy status to other drugs, medicaments and biological substances; Z51.5 Encounter for palliative care; Z79.51 Long term (current) use of inhaled steroids; J06.9 Acute upper respiratory infection, unspecified; I48.91 Unspecified atrial fibrillation; E78.00 Pure hypercholesterolemia, unspecified; I25.10 Atherosclerotic heart disease of native coronary artery without angina pectoris; I10 Essential (primary) hypertension; K21.9 Gastro-esophageal reflux disease without esophagitis; F41.9 Anxiety disorder, unspecified; D64.9 Anemia, unspecified; B95.7 Other staphylococcus as the cause of diseases classified elsewhere; Z79.52 Long term (current) use of systemic steroids; Z79.899 Other long term (current) drug therapy; Z79.01 Long term (current) use of anticoagulants; Z88.1 Allergy status to other antibiotic agents; Z88.2 Allergy status to sulfonamides; I25.2 Old myocardial infarction; Z95.5 Presence of coronary angioplasty implant and graft; Z79.82 Long term (current) use of aspirin
CPT/HCPCS: 36415; 71045; 71046; 80053; 82945; 83605; 83690; 84157; 85025; 87070; 87075; 87077 ×2; 87186 ×2; 87205; 89050; 96365; 96375; 99285; J0692; J2270 ×2; J2405; J7040; 71275; 71275-26; 74176; 74176-26; 80048; 81003; 83735; 84100; 87040; 97162-GP; 99222; 99232; 99233; 99239; 99284; A9270-GY; J1836; J1956; J2060; J2272; J2765; J3475; J7030; Q9967